=== PATIENT | female | born 1985 | race Caucasian/White ===

== ENCOUNTER 2024-09-19 09:08 | Day surgery (SDC) | payer OTHER ==
[2024-09-14 12:51] VITALS: BMI 24.9
[2024-09-19 09:40] VITALS: RESP 16; TEMP 97.6
[2024-09-19] MEDS: LACTATED RINGERS 1,000 ML IV SCH (09:48)
[2024-09-19] MEDS ORDERED: PROPOFOL 10 MG/ML 20 ML VIAL IV ONE (10:02)
--- NOTE | 2024-09-19 10:19 | P.PCN ---
Date of Procedure: 09/19/24 Preoperative Diagnosis: Rectal bleeding Postoperative Diagnosis: Internal hemorrhoids Procedure(s) Performed: Colonoscopy Anesthesia: MAC Surgeon: Jacqueline Elam Pathology: none sent Condition: stable Disposition: same day Indications for Procedure: 39-year-old female with recent history of rectal bleeding. She is noticing blood in her stool and blood in her underwear. She does have family history of colon cancer and inflammatory bowel disease. Risks, benefits and alternatives were provided. Operative Findings: Internal hemorrhoids Description of Procedure: The patient was brought to the endoscopy suite and placed in left lateral decubitus position and adequate sedation was achieved using conscious sedation. Digital rectal exam was performed and mild internal hemorrhoids were palpated. An endoscope was then placed in the rectum and advanced to the cecum as identified by landmarks including the appendiceal orifice and the ileocecal valve. The prep was good. The colonoscope was then slowly withdrawn, examining for any mucosal abnormalities. The cecum, ascending, transverse, descending and sigmoid colon were visualized adequately. There were no large neoplastic lesions throughout the colon. There were no obvious polyps throughout the colon. No significant evidence of diverticulosis. Hemostasis was maintained. Retroflexion was performed in the rectum and internal hemorrhoids. Excess air was removed, the colonoscope withdrawn and the procedure terminated. The patient was then transferred to the recovery unit in stable condition. Repeat colonoscopy should be performed in 5 years due to family history of colon cance r.
[2024-09-19 10:36] VITALS: BP 104/67; PULSE 78
== END 2024-09-19 10:58 | disposition home or self-care (01) ==
LOC: ORWHC2ENDO 09:08
PROVIDERS: ATTEND Surgery
DX: K64.8 Other hemorrhoids (principal); L40.9 Psoriasis, unspecified; F90.9 Attention-deficit hyperactivity disorder, unspecified type; F41.9 Anxiety disorder, unspecified; F17.210 Nicotine dependence, cigarettes, uncomplicated; Z80.0 Family history of malignant neoplasm of digestive organs; Z79.899 Other long term (current) drug therapy; Z98.890 Other specified postprocedural states
CPT/HCPCS: 81025; 45378; J2704